=== PATIENT | male | born 1970 | race Caucasian/White ===

== ENCOUNTER 2016-10-09 00:20 | Emergency (ER) | payer OTHER ==
[~2016-10-09] VITALS: Ht 180.3 cm; Wt 78.0 kg
[2016-10-09 00:23] VITALS: BP 133/79; PULSE 67; RESP 16; TEMP 98.6; O2SAT 98
[2016-10-09] MEDS ORDERED: DICL75TA PO (00:34)
[2016-10-09] MEDS ORDERED: CYCL1TAB29 PO (00:34)
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
[2016-10-09] MEDS ORDERED: CYCLOBENZAPRINE HCL 10 MG TAB PO ONE (00:45)
[2016-10-09] MEDS ORDERED: NAPROXEN 500 MG TAB PO ONE (00:45)
== END 2016-10-09 01:06 | disposition home or self-care (01) ==
LOC: NEPK 00:20
DX: S39.012A Strain of muscle, fascia and tendon of lower back, initial encounter (principal); V49.49XA Driver injured in collision with other motor vehicles in traffic accident, initial encounter; Y93.89 Activity, other specified; Y92.410 Unspecified street and highway as the place of occurrence of the external cause
CPT/HCPCS: 99283